=== PATIENT | female | born 2005 | race Asian ===

== ENCOUNTER 2025-03-06 12:20 | Outpatient (CLI) | payer OTHER, SELFPAY ==
--- NOTE | ~2025-03-06 | XR_ITS ---
EXAMINATION: XR chest 2V, 03/06/2025 12:48 CALL CENTER MANAGER HISTORY: Pos quantiferon COMPARISON: No comparisons available. Technique: 2 views obtained. Findings: The lungs are clear, no effusion. No pneumothorax. Heart is normal size. Mediastinal and hilar contours are within normal limits. Bony thorax no acute abnormality. Impression: No evidence of active TB Reviewed, dictated and finalized at location P. CENTER MANAGER Impression: No evidence of active TB
== END 2025-03-06 12:21 | disposition home or self-care (01) ==
PROVIDERS: PCP Nurse Practitioner Psychiatric/Mental Health; Visit Provider Nurse Practitioner Psychiatric/Mental Health
DX: R76.12 Nonspecific reaction to cell mediated immunity measurement of gamma interferon antigen response without active tuberculosis (principal)
CPT/HCPCS: 71046